=== PATIENT | female | born 1960 | race Two or more races ===

== ENCOUNTER 2022-04-08 22:31 | Emergency (ER) | payer MEDICAID ==
[~2022-04-08] VITALS: Ht 154.9 cm; Wt 73.2 kg
[2022-04-08] MEDS ORDERED: TETANUS-DIPTH-ACEL PERTUSSIS 0.5ML SYR Tdap IM ONE (22:45)
[2022-04-08] MEDS ORDERED: LIDOCAINE 1% HCL (LOCAL ANESTH.) INJ 20ML MDV ID ONE (22:45)
[2022-04-09] MEDS ORDERED: MAX35OO TOP (01:57)
[2022-04-09] MEDS ORDERED: IBUP800T26 PO (01:57)
[2022-04-09] MEDS ORDERED: CEPH-510 PO (01:57)
[2022-04-09 03:03] VITALS: BP 130/84
[2022-04-09] MEDS ORDERED: NEOMYCIN-BACITRACIN-POLYM 15GM TOP OINT TOP SCH (10:00)
== END 2022-04-09 03:07 | disposition home or self-care (01) ==
LOC: ER 22:31
DX: S01.112A Laceration without foreign body of left eyelid and periocular area, initial encounter (principal); W18.39XA Other fall on same level, initial encounter; Y93.89 Activity, other specified; Y92.89 Other specified places as the place of occurrence of the external cause; Y99.8 Other external cause status
CPT/HCPCS: 12013; 90471; 90715; 99283; J2001